=== PATIENT | female | born 2000 | race Caucasian/White ===

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

== ENCOUNTER 2021-06-11 23:44 | Emergency (ER) | payer BC ==
[~2021-06-11 23:44] MED LIST: CIPRO HC OTIC S10 ML EARRT; IBUPROFEN800 MG PO; TAMIFLU75 MG PO
[2021-06-12 01:47] LABS: BUN/CREATININE RATIO 13 (0-10)
[2021-06-12 01:58] LABS: HEMOGLOBIN 12.9 gm/dl (12.3-15.3); RED BLOOD COUNT 4.88 M/UL (4.00-5.10); WHITE BLOOD COUNT 8.5 K/UL (4.5-11.0)
[2021-06-12] MEDS ORDERED: CEPHALEXIN500 MG PO (03:11)
[2021-06-12] MEDS ORDERED: PHENERGAN 25 MG25 M1 PO (03:11)
[2021-06-12] MEDS ORDERED: PEPCID20 MG PO (03:11)
== END 2021-06-12 03:30 | disposition home or self-care (01) ==
LOC: ER1 23:44
PROVIDERS: Emergency Medicine
DX: O99.891 Other specified diseases and conditions complicating pregnancy (principal); R10.10 Upper abdominal pain, unspecified; R82.71 Bacteriuria; Z3A.13 13 weeks gestation of pregnancy
CPT/HCPCS: 80053; 81001; 83690; 85025; 87086; 96374; 96375; 99284; J2765; J7030

== ENCOUNTER 2021-12-17 22:47 | Inpatient (IN) | payer BC ==
[~2021-12-17] VITALS: Ht 162.6 cm; Wt 98.4 kg
[~2021-12-17 22:47] MED LIST changes: +CEPHALEXIN500 MG PO; +PEPCID20 MG PO; +PHENERGAN 25 MG25 M1 PO
[2021-12-17 23:32] LABS: HEMOGLOBIN 11.8 gm/dl (12.3-15.3); RED BLOOD COUNT 4.55 M/UL (4.00-5.10); WHITE BLOOD COUNT 12.6 K/UL (4.5-11.0)
[2021-12-18] MEDS ORDERED: DOCUSATE SODIU100 MG PO (11:29)
[2021-12-18] MEDS ORDERED: FERROUS SULFAT325 MG PO (11:30)
[2021-12-18] MEDS ORDERED: IBU600 MG PO (11:30)
[2021-12-19 05:04] LABS: HEMOGLOBIN 10.9 gm/dl (12.3-15.3); RED BLOOD COUNT 4.16 M/UL (4.00-5.10); WHITE BLOOD COUNT 9.9 K/UL (4.5-11.0)
[2021-12-19 05:22] LABS: BUN/CREATININE RATIO 12 (0-10)
--- NOTE | 2021-12-20 03:44 | NUR ---
RESTING . REQUESTED PAIN MEDICATION. REPORTING LEFT SIDE PAIN 05/19 . MORPHINE 2MG IV ADMINISTERED. AND BABY IN ROOM WITH PATIENT AT THIS TIME.
[2021-12-20 05:22] LABS: HEMOGLOBIN 10.9 gm/dl (12.3-15.3); RED BLOOD COUNT 4.21 M/UL (4.00-5.10); WHITE BLOOD COUNT 8.9 K/UL (4.5-11.0)
[2021-12-20 05:28] LABS: BUN/CREATININE RATIO 14 (0-10)
[2021-12-21 05:50] LABS: HEMOGLOBIN 10.5 gm/dl (12.3-15.3); RED BLOOD COUNT 3.99 M/UL (4.00-5.10); WHITE BLOOD COUNT 9.3 K/UL (4.5-11.0)
[2021-12-21 06:10] LABS: BUN/CREATININE RATIO 15 (0-10)
[2021-12-22 04:36] LABS: HEMOGLOBIN 10.3 gm/dl (12.3-15.3); RED BLOOD COUNT 3.9 M/UL (4.00-5.10); WHITE BLOOD COUNT 9.5 K/UL (4.5-11.0)
[2021-12-22 05:01] LABS: BUN/CREATININE RATIO 15 (0-10)
[2021-12-23 07:26] LABS: BUN/CREATININE RATIO 13 (0-10)
[2021-12-23 07:42] LABS: HEMOGLOBIN 9.8 gm/dl (12.3-15.3); RED BLOOD COUNT 3.73 M/UL (4.00-5.10); WHITE BLOOD COUNT 8.6 K/UL (4.5-11.0)
[2021-12-24 05:23] LABS: RED BLOOD COUNT 3.84 M/UL (4.00-5.10); WHITE BLOOD COUNT 7.9 K/UL (4.5-11.0)
[2021-12-24 05:54] LABS: BUN/CREATININE RATIO 13 (0-10)
[2021-12-25 04:45] LABS: HEMOGLOBIN 10.5 gm/dl (12.3-15.3); RED BLOOD COUNT 3.98 M/UL (4.00-5.10)
[2021-12-26 06:36] LABS: BUN/CREATININE RATIO 16 (0-10)
[2021-12-27 04:58] LABS: HEMOGLOBIN 10.6 gm/dl (12.3-15.3); RED BLOOD COUNT 4.03 M/UL (4.00-5.10); WHITE BLOOD COUNT 6.9 K/UL (4.5-11.0)
[2021-12-27 05:14] LABS: BUN/CREATININE RATIO 18 (0-10)
[2021-12-27] MEDS ORDERED: coumadin (09:45)
== END 2021-12-27 11:00 | disposition home or self-care (01) | DRG 776 ==
LOC: ER1 22:47 → CCU 12-18 00:39 → CDU 12-18 00:39 → CCU 12-18 07:25
PROVIDERS: Internal Medicine; Physician Assistant Medical; ADMIT Internal Medicine
PROC: B24BZZZ Ultrasonography of Heart with Aorta (ICD-10-PCS; principal; 2021-12-18)
DX: O88.83 Other embolism in the puerperium (principal); I26.99 Other pulmonary embolism without acute cor pulmonale; J96.01 Acute respiratory failure with hypoxia; N17.9 Acute kidney failure, unspecified; O99.53 Diseases of the respiratory system complicating the puerperium; Z20.822 Contact with and (suspected) exposure to COVID-19; E66.01 Morbid (severe) obesity due to excess calories; O99.285 Endocrine, nutritional and metabolic diseases complicating the puerperium; O90.89 Other complications of the puerperium, not elsewhere classified; E83.42 Hypomagnesemia; Z83.2 Family history of diseases of the blood and blood-forming organs and certain disorders involving the immune mechanism; Z98.51 Tubal ligation status; Z79.899 Other long term (current) drug therapy; Z98.890 Other specified postprocedural states; Z79.01 Long term (current) use of anticoagulants
CPT/HCPCS: 36415; 71045; 80048; 80053; 82550; 82553; 83605; 83735; 83880; 84100; 84439; 84443; 84484; 85025; 85027; 85610; 85730; 87040; 93005; 93308; 93970; 94760; 96374; 96375; 96376; 99285; J1170; J1644; J2270; J2405; J3475; J7040; Q9967; U0002

== ENCOUNTER 2022-04-25 08:37 | Emergency (ER) | payer BC ==
[~2022-04-25] VITALS: Ht 165.1 cm; Wt 104.3 kg
[~2022-04-25 08:37] MED LIST changes: +DOCUSATE SODIU100 MG PO; +FERROUS SULFAT325 MG PO; +IBU600 MG PO; +coumadin
[2022-04-25 10:27] LABS: HEMOGLOBIN 13.6 gm/dl (12.3-15.3); RED BLOOD COUNT 5.28 M/UL (4.00-5.10); WHITE BLOOD COUNT 6.9 K/UL (4.5-11.0)
[2022-04-25 10:51] LABS: BUN/CREATININE RATIO 14 (0-10)
== END 2022-04-25 14:30 | disposition home or self-care (01) ==
LOC: ER1 08:37
PROVIDERS: Emergency Medicine
DX: U07.1 COVID-19 (principal); Z23 Encounter for immunization; Z86.711 Personal history of pulmonary embolism
CPT/HCPCS: 80053; 82550; 82553; 84484; 84703; 85025; 93005; 99284; M0222; Q9967